=== PATIENT | male | born 1955 | race Caucasian/White ===

== ENCOUNTER 2016-08-06 11:07 | Emergency (ER) | payer OTHER ==
[~2016-08-06] VITALS: Ht 152.4 cm; Wt 49.9 kg
[~2016-08-06 11:07] MED LIST: AMMONIUM LACTA225 GM TP; APAP500 PO; BENADRYL25 MG PO; BISAC-EVAC10 MG RC; BISACODYL SUPP10 MG RE; CIPRO250 M1 PO; CIPROFLOXACIN500 M1 PO; DANDRUFF 1% SH325 ML TP; ENSURE113 GM PO; FLONASE 0.05%50 MCG NASAL; IRON PO; KEPPRA 500 MG500 M1 PO; LOMOTIL TABLET1 EACH PO; LOPERAMIDE 2 MG2 M1 PO; MACROBID 100 M100 M1 PO; MINERIN LOTION473 ML TP; MIRALAX17 GM PO; MIRALAX255 GM PO; MUCINEX600 MG PO; NAMENDA 5 MG TAB5 M1 PO; NASONEX17 GM NS; RANITIDINE 150150 M1 PO; REMERON15 MG PO; SEROQUEL 25 MG25 M1 PO; TRIAMCINOLONE A80 G2 TOP; VITAMINC500 PO; ZANTAC 150MG T150 M1 PO; ZINC10 MG PO; ZOFRAN ODT4 MG PO; ZOFRAN4 MG PO; ZPAK PO; [UNRECOGNIZED DRUG - OTHER] PO
[2016-08-06 11:35] LABS: ABSOLUTE NEUTROPHILS 2.8 thou/uL (1.4-8.2); BASOPHILS 2.1 % (0.0-2.0); EOSINOPHILS 1.1 % (0.0-3.0); HEMATOCRIT 31.7 % (42.0-52.0); HEMOGLOBIN 10.6 gm/dL (14.0-18.0); LYMPHOCYTES 31.4 % (24.0-44.0); MCH 32.5 pg (26.0-34.0); MCHC 33.4 % (28.0-37.0); MCV 97.3 fL (80.0-100.0); PLATELET COUNT 210 thou/uL (150-400); POLYS 55.4 % (36.0-66.0); RBC 3.26 mil/uL (4.50-6.00); RDW 13.4 % (10.5-14.5); WBC 5.1 thou/uL (4.0-11.0)
[2016-08-06 11:36] LABS: MANUAL DIFF NO
[2016-08-06 11:45] LABS: CALCIUM 9.3 mg/dL (8.5-10.1); CREATININE 1.5 mg/dL (0.6-1.3); POTASSIUM 4.3 mmol/L (3.5-5.1)
== END 2016-08-06 13:41 | disposition designated cancer center or children's hospital (05) ==
LOC: ER 11:07
PROVIDERS: Physician Assistant
DX: G40.909 Epilepsy, unspecified, not intractable, without status epilepticus (principal); K21.9 Gastro-esophageal reflux disease without esophagitis; F32.9 Major depressive disorder, single episode, unspecified; G30.9 Alzheimer's disease, unspecified; F02.80 Dementia in other diseases classified elsewhere, unspecified severity, without behavioral disturbance, psychotic disturbance, mood disturbance, and anxiety

== ENCOUNTER 2017-04-15 17:09 | Inpatient (IN) | payer OTHER ==
[~2017-04-15] VITALS: Ht 160 cm; Wt 44.5 kg
[2017-04-15 17:10] VITALS: BP 113/71
[2017-04-15 17:54] LABS: ABSOLUTE NEUTROPHILS 2.9 thou/uL (1.4-8.2); BASOPHILS 1.1 % (0.0-2.0); EOSINOPHILS 3.3 % (0.0-3.0); HEMATOCRIT 34.4 % (42.0-52.0); HEMOGLOBIN 11.6 gm/dL (14.0-18.0); LYMPHOCYTES 38.8 % (24.0-44.0); MCH 32.5 pg (26.0-34.0); MCHC 33.6 g/dL (28.0-37.0); MCV 96.7 fL (80.0-100.0); PLATELET COUNT 243 thou/uL (150-400); POLYS 44.8 % (36.0-66.0); RBC 3.56 mil/uL (4.50-6.00); RDW 15.5 % (10.5-14.5); WBC 6.4 thou/uL (4.0-11.0)
[2017-04-15 17:55] LABS: URINE BILIRUBIN NEGATIVE (Negative); URINE BLOOD TRACE (Negative); URINE COLOR YELLOW; URINE GLUCOSE-RANDOM* NEGATIVE (Negative); URINE KETONES NEGATIVE (Negative); URINE PROTEIN (DIPSTICK) NEGATIVE (Negative); URINE SPECIFIC GRAVITY 1.015 (1.003-1.035); URINE UROBILINOGEN 0.2 E.U./dl (0.2-1.0)
[2017-04-15 17:58] LABS: URINE LEUKOCYTES-REFLEX 3+ (Negative)
[2017-04-15] MEDS ORDERED: COLACE100 MG PO (17:58)
[2017-04-15] MEDS ORDERED: LIPITOR10 MG PO (17:59)
[2017-04-15] MEDS ORDERED: LO-DOSE ASPIRIN81 M1 PO (18:00)
[2017-04-15 18:12] LABS: MANUAL DIFF NO
[2017-04-15 18:14] LABS: CALCIUM 9.5 mg/dL (8.5-10.1); CREATININE 1.8 mg/dL (0.7-1.3); POTASSIUM 4.5 mmol/L (3.5-5.1)
[2017-04-15 18:19] LABS: CASTS None Seen /LPF (None Seen); SQUAMOUS 0-3 Few /LPF (0-3); URINE RBC 0-2 Rare /HPF (0-2); URINE WBC-REFLEX >25 Many /HPF (0-5)
[2017-04-15 18:20] LABS: AMORPHOUS URATES Moderate /LPF (None Seen)
[2017-04-15 18:20] LABS: ALBUMIN 3.8 g/dL (3.4-5.0); MAGNESIUM 2.5 mg/dL (1.8-2.4); TOTAL BILIRUBIN 0.2 mg/dL (<0.1-1.0); TOTAL PROTEIN 7.7 g/dL (6.4-8.2)
[2017-04-15 20:21] VITALS: BP 95/56
[2017-04-15 20:38] VITALS: BP 102/52
[2017-04-15 20:51] VITALS: BP 85/47
[2017-04-15 21:20] VITALS: BP 85/49
[2017-04-16] VITALS: BP 75/48
[2017-04-16 05:00] VITALS: BP 83/52
[2017-04-16 06:39] LABS: CALCIUM 8.8 mg/dL (8.5-10.1); CREATININE 1.5 mg/dL (0.7-1.3); MAGNESIUM 2.2 mg/dL (1.8-2.4); POTASSIUM 4.1 mmol/L (3.5-5.1)
[2017-04-16 08:45] VITALS: BP 105/62
[2017-04-16 15:19] VITALS: BP 104/81
[2017-04-16 19:30] VITALS: BP 142/49
[2017-04-16 20:00] VITALS: BP 84/53
[2017-04-17 04:18] VITALS: BP 101/60
[2017-04-17 06:23] LABS: ABSOLUTE NEUTROPHILS 2.1 thou/uL (1.4-8.2); BASOPHILS 1.5 % (0.0-2.0); EOSINOPHILS 5.6 % (0.0-3.0); HEMATOCRIT 30.8 % (42.0-52.0); HEMOGLOBIN 10.5 gm/dL (14.0-18.0); MCH 32.9 pg (26.0-34.0); MCHC 34.1 g/dL (28.0-37.0); MCV 96.4 fL (80.0-100.0); MONOCYTES 9.6 % (1.0-8.0); PLATELET COUNT 191 thou/uL (150-400); POLYS 48.3 % (36.0-66.0); RBC 3.19 mil/uL (4.50-6.00); RDW 15.4 % (10.5-14.5); WBC 4.3 thou/uL (4.0-11.0)
[2017-04-17 06:24] LABS: MANUAL DIFF NO
[2017-04-17 06:29] LABS: CALCIUM 8.6 mg/dL (8.5-10.1); CREATININE 1.5 mg/dL (0.7-1.3); POTASSIUM 4.6 mmol/L (3.5-5.1)
[2017-04-17 07:23] VITALS: BP 129/62
[2017-04-17 15:26] VITALS: BP 109/71
[2017-04-17 21:01] VITALS: BP 130/100
[2017-04-17 21:58] VITALS: BP 108/64
[2017-04-18 02:41] VITALS: BP 127/72
[2017-04-18 06:26] LABS: CALCIUM 8.1 mg/dL (8.5-10.1); CREATININE 1.2 mg/dL (0.7-1.3); POTASSIUM 4.3 mmol/L (3.5-5.1)
[2017-04-18 07:19] VITALS: BP 111/73
[2017-04-18 16:09] VITALS: BP 110/70
[2017-04-18 19:54] VITALS: BP 102/56
[2017-04-19 04:56] VITALS: BP 103/61
[2017-04-19 06:36] LABS: CALCIUM 8.8 mg/dL (8.5-10.1); CREATININE 1.5 mg/dL (0.7-1.3); POTASSIUM 4.7 mmol/L (3.5-5.1)
[2017-04-19 09:48] VITALS: BP 99/61
[2017-04-19 16:13] VITALS: BP 94/52
[2017-04-19 20:00] VITALS: BP 94/57
[2017-04-20 04:30] VITALS: BP 97/59
[2017-04-20 06:19] LABS: HEMATOCRIT 30.9 % (42.0-52.0); HEMOGLOBIN 10.5 gm/dL (14.0-18.0); MCH 32.5 pg (26.0-34.0); MCHC 33.9 g/dL (28.0-37.0); MCV 95.8 fL (80.0-100.0); PLATELET COUNT 191 thou/uL (150-400); RBC 3.23 mil/uL (4.50-6.00); RDW 14.5 % (10.5-14.5); WBC 4.3 thou/uL (4.0-11.0)
[2017-04-20 06:26] LABS: CALCIUM 8.9 mg/dL (8.5-10.1); CREATININE 1.4 mg/dL (0.7-1.3); MANUAL DIFF YES; POTASSIUM 4.5 mmol/L (3.5-5.1)
[2017-04-20 07:21] VITALS: BP 95/55
[2017-04-20 07:39] LABS: ABSOLUTE NEUTROPHILS 2.1 thou/uL (1.4-8.2); ANISOCYTOSIS SLIGHT; TOTAL CELL COUNT 100
[2017-04-20] MEDS ORDERED: FLOMAX0.4 MG PO (14:08)
[2017-04-20 14:55] VITALS: BP 95/55
[2017-04-20 15:20] VITALS: BP 89/58
== END 2017-04-20 18:00 | disposition hospice, home (50) | DRG 689 ==
LOC: ER 17:09 → EROBS 20:06 → 4E 20:06
PROVIDERS: Emergency Medicine; Hospitalist; Internal Medicine Endocrinology, Diabetes & Metabolism; Internal Medicine Geriatric Medicine; Nurse Practitioner Acute Care
DX: N39.0 Urinary tract infection, site not specified (principal); N17.0 Acute kidney failure with tubular necrosis; G30.9 Alzheimer's disease, unspecified; F02.80 Dementia in other diseases classified elsewhere, unspecified severity, without behavioral disturbance, psychotic disturbance, mood disturbance, and anxiety; K21.9 Gastro-esophageal reflux disease without esophagitis; K59.00 Constipation, unspecified; F32.9 Major depressive disorder, single episode, unspecified; I95.9 Hypotension, unspecified; R33.9 Retention of urine, unspecified; E86.0 Dehydration; Z79.899 Other long term (current) drug therapy; Z79.82 Long term (current) use of aspirin; Q90.9 Down syndrome, unspecified; G40.909 Epilepsy, unspecified, not intractable, without status epilepticus
CPT/HCPCS: 10183